=== PATIENT | female | born 1965 | race Caucasian/White ===

== ENCOUNTER 2017-04-22 06:12 | Day surgery (SDC) | payer OTHER ==
[2017-04-15 09:37] VITALS: BMI 39.6
[2017-04-22] MEDS ORDERED: MIDAZOLAM HCL 2 MG/2 ML SINGLE DOSE VIAL ONE (07:37)
[2017-04-22] MEDS ORDERED: EPINEPHrine 1:1,000 1 MG/1 ML - 30ML VIAL (INJECTION) ONE (07:40)
[2017-04-22] MEDS ORDERED: BUPIVACAINE HCL/PF 2.5 MG/ML - 30 ML VIAL IJ ONE (07:40)
[2017-04-22] MEDS ORDERED: morphine CARPU-JECT 10 MG/1 ML DISP.SYRIN ONE (07:40)
[2017-04-22] MEDS ORDERED: KETOROLAC TROMETHAMINE 60 MG/2 ML VIAL ONE (07:40)
[2017-04-22] MEDS ORDERED: SUCCINYLCHOLINE CHLORIDE 200 MG/10 ML VIAL ONE (08:31)
[2017-04-22] MEDS ORDERED: PROPOFOL 20 ML ONE (08:34)
[2017-04-22] MEDS ORDERED: KETOROLAC TROMETHAMINE 30 MG/1 ML VIAL ONE ×2 (08:45→09:32)
[2017-04-22] MEDS ORDERED: ONDANSETRON 4 MG/2 ML VIAL ONE (08:45)
[2017-04-22] MEDS ORDERED: DEXAMETHASONE SOD PHOSPHATE 4 MG/1 ML VIAL ONE (08:45)
[2017-04-22] MEDS ORDERED: ONDANSETRON 4 MG/2 ML VIAL IVPUSH PRN (09:23)
[2017-04-22] MEDS ORDERED: oxyCODONE HCL 5 MG TABLET PO PRN (09:37)
[2017-04-22] MEDS ORDERED: PROMETHAZINE HCL 25 MG/1 ML VIAL IVPUSH PRN (09:38)
--- NOTE | 2017-04-22 09:57 | OP ---
DATE OF OPERATION: 04/22/2017 SURGEON: Marcin Montero MD ANESTHESIOLOGIST: Todd Murray MD TYPE OF ANESTHESIA: LMA general. Marcaine 0.25%, 10 mL was instilled in the skin prior to skin incision. At the conclusion of the procedure, 10 mg of morphine and 30 mg of Toradol was instilled in the knee for additional analgesia. PREOPERATIVE DIAGNOSIS: Left knee medial meniscal tear. POSTOPERATIVE DIAGNOSES: 1. Left knee medial meniscal tear. 2. Patellofemoral chondromalacia. BLOOD LOSS: Minimal. TOURNIQUET TIME: Approximately 15 minutes. COMPLICATIONS: There were no complications. PROCEDURE: Left knee arthroscopy, partial medial meniscectomy. INDICATION: The patient is a 51-year-old female complaining of sharp, stabbing episodes of knee pain, knee buckling. Pain is worse at night when she turns over in her sleep. She was sent for an MRI showing patellofemoral chondromalacia as well as a tear along the inferior articular surface posterior horn of the medial meniscus. Treatment options, both operative and nonoperative treatment, were discussed at length with the patient. After thorough discussion, patient wished to proceed with operative intervention. The risks of surgery were explained to include but not be limited to infection, stiffness, continued pain, chance that all her symptoms may not be relieved, chance that despite surgery she may have continued pain, and a chance she may need additional surgery to treat the above complications, chance that should she have significant arthritis or symptoms coming from the arthritis, the symptoms may worsen. Initially the patient opted for physical therapy, but as her pain worsened, she had called back the office and wished to proceed with operative intervention, and we again discussed the risks and benefits over the phone. I again had the conversation with her and her daughter who was at the bedside in the preoperative holding area. The patient understands the risks involved with the procedure. She has identified her left knee as the operative site, which is confirmed with the operating room staff, and she agrees to proceed with the planned procedure. The procedure is as follows. DESCRIPTION OF PROCEDURE: After administration of LMA general anesthetic by the anesthesiologist with the patient in supine position, tourniquet was placed on the left leg, and the left was then prepped and draped in the usual sterile manner. The tourniquet was inflated. The aforementioned local with Marcaine was instilled in the skin. Diagnostic arthroscopy was then performed from anteromedial and anterolateral portals. Upon entering the knee, the patient had Outerbridge classification grade 2, in some small areas grade 3, chondromalacia of the undersurface of the patella without any unstable articular chondral flaps. There were lots of changes in the trochlear groove. Upon entering the medial compartment there was a tear from the root of the posterior horn involving the undersurface of the posterior horn extending just up to the body of the medial meniscus. There was a parrot beak tear, a long tear involving the white-white and red-white zones. There was minimal chondromalacia, Outerbridge classification grade 1 and 2 of the medial compartment. A partial medial meniscectomy was then performed, stabilizing the remaining medial meniscus down to smooth, stable contours. There was some fibrillation of the anterior horn which was debrided as well. The intercondylar notch was then visualized, showing an intact ACL and PCL. The lateral compartment was then visualized, showing pristine cartilaginous surface of the lateral femoral condyle, lateral tibial plateau, as well as lateral meniscus. All arthroscopic fluid and shavings were then removed using the arthroscopic shaver with suction. The wounds were then closed 3-0 nylon sutures. The aforementioned local of Toradol and morphine was instilled in the knee. The wounds were then dressed with Adaptic, 4 x 4 gauze, ABD pad, held in place with loosely applied Rodolfo wrap. The patient was then awoken and transported to the recovery room in stable condition, having tolerated the procedure well. MARCIN MONTERO M.D. [id number]
[2017-04-22] MEDS ORDERED: oxyCODONE HCL 5 MG TABLET ONE (10:39)
[2017-04-22 11:07] VITALS: TEMP 98
[2017-04-22 12:29] VITALS: BP 120/77; PULSE 75
== END 2017-04-22 12:15 | disposition home or self-care (01) ==
LOC: FASU 06:12
PROVIDERS: ATTEND Orthopaedic Surgery
PROC: 0SBD4ZZ Excision of Left Knee Joint, Percutaneous Endoscopic Approach (ICD-10-PCS; principal; 2017-04-22 08:57)
DX: S83.242A Other tear of medial meniscus, current injury, left knee, initial encounter (principal); M22.42 Chondromalacia patellae, left knee; X58.XXXA Exposure to other specified factors, initial encounter; Y93.9 Activity, unspecified; Y92.9 Unspecified place or not applicable
CPT/HCPCS: 94760